=== PATIENT | female | born 1990 | race Caucasian/White ===

== ENCOUNTER 2018-06-17 18:40 | Observation (INO) ==
[2018-06-17] MEDS ORDERED: Acetaminophen 325 MG Tablet PO PRN (22:06)
[2018-06-17] MEDS ORDERED: Bisacodyl 10 MG Supp RECTAL PRN (22:06)
[2018-06-18] MEDS: Morphine Inj 4 MG/ML Vial IV.PUSH PRN ×5 (01:03→23:15)
[2018-06-18] MEDS: Sod Chloride 0.9% Inj 1,000 ML IV.CONT SCH ×3 (01:03→18:00)
[2018-06-18] MEDS: Temazepam 15 MG Capsule PO PRN ×2 (01:05→23:16)
[2018-06-18 07:51] LABS: Chloride 104 meq/L (98-107); Potassium 3.7 meq/L (3.5-5.1); Sodium 136 meq/L (136-145)
[2018-06-18 07:53] LABS: Baso % (Auto) 0.3 % (0.0-2.0); Eos % (Auto) 0.2 % (0.0-4.0); Hematocrit 39.3 % (35.0-46.0); Hemoglobin 13.8 gm/dL (11.6-15.3); Lymph # (Auto) 1.5 th/mm3 (1.0-4.8); Lymph % (Auto) 11.6 % (9.0-44.0); Mean Corpuscular Hemoglobin 31.9 pg (27.0-34.0); Mean Corpuscular Volume 91.2 fL (80.0-100.0); Mean Platelet Volume 9.1 fL (7.0-11.0); Mono # (Auto) 0.7 th/mm3 (0.0-0.9); Mono % (Auto) 5.7 % (0.0-8.0); Neut # (Auto) 10.8 th/mm3 (1.8-7.7); Neut % (Auto) 82.2 % (16.0-70.0); Platelet Count 326 th/mm3 (150-450); Red Blood Count 4.31 mil/mm3 (4.00-5.30); Red Cell Distribution Width 12.7 % (11.6-17.2)
[2018-06-18 07:54] LABS: Calcium 7.9 mg/dL (8.5-10.1)
[2018-06-18 07:55] LABS: Albumin 3.5 g/dL (3.4-5.0); Anion Gap 8 meq/L (5-15); Blood Urea Nitrogen 10 mg/dL (7-18); Carbon Dioxide 23.8 meq/L (21.0-32.0); Glucose,Random 94 mg/dL (74-106)
[2018-06-18 07:58] LABS: Alanine Aminotransferase 24 U/L (10-53); Aspartate Aminotransferase 11 U/L (15-37); Glomerular Filtration Rate Greater Than 89 mL/min (>89)
[2018-06-18 08:00] LABS: Total Protein 6.7 g/dL (6.4-8.2)
[2018-06-18 08:01] LABS: Alkaline Phosphatase 55 U/L (45-117)
--- NOTE | 2018-06-18 08:36 | P.HP ---
History of Present Illness Service: Hospitalist Primary Care Physician: UNKNOWN Chief Complaint: Abdominal pain History of Present Illness: Ms. Andrews is a pleasant 28-year-old female with no significant medical history who presents to the emergency department on 06/17/2010 due to right upper quadrant abdominal pain, nausea and vomiting. Her symptoms started in the morning on 06/17/2018. She initially reported to [place] ED. Gallbladder ultrasound shows multiple stones as well as gallbladder wall thickening. She was subsequently transferred to [place]. She had leukocytosis WBC 13.0. She denies any fever but reports chills. Denies any chest pain, shortness of breath, cough. Denies changes in bowel or bladder habits. Past medical history: No significant past medical history Past surgical history no significant past surgical history. Social history: Patient smokes about half a pack a day, denies drinking alcohol. She smokes meth. Denies using IV drugs. Family history: Father with heart disease. - Diagnosis (1) Acute cholecystitis [facility] - History History Provided By: Patient - Medical History Medical History: Medical History (Last Updated 06/17/18 @ 18:48 by Zamzam West RN) Anxiety - Surgical History Surgical History: Surgical History (Last Reviewed 06/18/18 @ 07:03 by Wendy Garcia MD) No history of previous surgery - Tobacco History Second Hand Smoke Exposure: Yes Tobacco Use In Past 30 Days: Yes Smoking Status: Heavy tobacco smoker Tobacco Type: Cigarettes - Alcohol History How Often Do You Have a Drink Containing Alcohol: Never - Substance Use History Substance History: Active Abuse - Substance Use Type Methamphetamine Status: Active Route Used: Inhalation Frequency: monthly Last Used: "few days ago" Reason for Use: Get High Medications and Allergies Active Medications: Active Medications Acetaminophen (Tylenol) 650 mg PO Q4H PRN PRN Reason: Temp > 100.4 Al Hydroxide/Mg Hydroxide (Milk Of Magnesia Liq) 30 ml PO Q12H PRN PRN Reason: Mild Constipation Bisacodyl (Dulcolax Supp) 10 mg RECTAL DAILY PRN PRN Reason: SEVERE CONSITIPATION Sodium Chloride (Ns Inj) 1,000 mls @ 100 mls/hr IV.CONT .Q10H [facility] Last Admin: 06/18/18 01:03 Dose: 100 mls/hr Morphine Sulfate (Morphine Inj) 4 mg IV.PUSH Q3H PRN PRN Reason: PAIN > 4 Last Admin: 06/18/18 06:34 Dose: 4 mg Ondansetron HCl (Zofran Inj) 4 mg IV.PUSH Q6H PRN PRN Reason: NAUSEA OR VOMITING Last Admin: 06/18/18 06:33 Dose: 4 mg Sennosides (Senokot) 17.2 mg PO Q12H PRN PRN Reason: Moderate Constipation Temazepam (Restoril) 15 mg PO HS PRN PRN Reason: INSOMNIA Last Admin: 06/18/18 01:05 Dose: 15 mg Allergies Allergy/AdvReac Type Severity Reaction Status Date / Time No Known Allergies Allergy Unverified 06/17/18 18:46 Home Medications Medication Instructions Recorded Confirmed Type No Known Home Medications 06/17/18 06/17/18 History Exam Vital signs: Vital Signs 06/18/18 00:15 06/18/18 04:00 Temperature 97.6 F 98.3 F Pulse Rate 43 L 54 L Respiratory Rate 20 20 Blood Pressure 120/79 114/70 Pulse Oximetry 99 100 Intake & Output 06/17/18 06/18/18 06/18/18 18:59 06:59 18:59 Intake Total 0 / 0 Output Total 300 / 300 Balance -300 / -300 Weight 61.1 kg Intake: Oral 0 / 0 Output: Urine 300 / 300 Other: # Voids 1 # Emeses 3 Weight On Admission 61.1 kg Narrative: GENERAL: This is a well-nourished, well-developed patient, in no apparent distress. SKIN: No rashes, ecchymoses or lesions. Warm and dry. HEAD: Atraumatic. Normocephalic. No temporal or scalp tenderness. EYES: Pupils equal round and reactive. No injection or drainage. ENT: Nose without bleeding, purulent drainage or septal hematoma. Airway patent. NECK: Trachea midline. No lymphadenopathy. Supple, nontender, no meningeal signs. CARDIOVASCULAR: Regular rhythm, bradycardic without murmurs, gallops, or rubs. No JVD. RESPIRATORY: Clear to auscultation. Breath sounds equal bilaterally. No wheezes , rales, or rhonchi. GASTROINTESTINAL: Abdomen soft, tenderness to right upper quadrant on palpation , nondistended. No guarding. MUSCULOSKELETAL: Extremities without clubbing, cyanosis, or edema. NEUROLOGICAL: Awake and alert. Cranial nerves II through XII intact. No focal neurological deficits. Normal speech. Results - Labs CBC & Chem 7: 06/18/18 07:20 06/18/18 07:20 Labs: Laboratory Results - last 24 hr 06/18/18 06/18/18 07:20 07:20 CBC w Diff Auto diff final WBC 13.0 H RBC 4.31 Hgb 13.8 Hct 39.3 MCV 91.2 MCH 31.9 MCHC 35.0 RDW 12.7 Plt Count 326 MPV 9.1 Neut % (Auto) 82.2 H Lymph % (Auto) 11.6 Hinds % (Auto) 5.7 Eos % (Auto) 0.2 Baso % (Auto) 0.3 Neut # (Auto) 10.8 H Lymph # (Auto) 1.5 Hinds # (Auto) 0.7 Eos # (Auto) 0.0 Baso # (Auto) 0.0 WBC Differential . Differential Comment . Sodium 136 Potassium 3.7 Chloride 104 Carbon Dioxide 23.8 Anion Gap 8 BUN 10 Creatinine 0.31 L Estimated GFR Greater than 89 Random Glucose 94 Calcium 7.9 L D Total Bilirubin 0.4 AST 11 L ALT 24 Alkaline Phosphatase 55 Total Protein 6.7 D Albumin 3.5 Beta HCG, Qual Less than 1.00 Caprini VTE Risk Assessment Caprini VTE Risk Assessment: No/Low Risk (score <= 1) Caprini Risk Assessment Model: Point Value = 1 Point Value = 2 Point Value = 3 Point Value = 5 Age 41-60 Minor surgery BMI > 25 kg/m2 Swollen legs Varicose veins or History of unexplained or recurrent spontaneous Oral contraceptives or hormone replacement Sepsis (< 1 month) Serious lung disease, including pneumonia (< 1 month) Abnormal pulmonary function Acute myocardial infarction Congestive heart failure (< 1 month) History of inflammatory bowel disease Medical patient at bed rest Age 61-74 Arthroscopic surgery Major open surgery (> 45 min) Laparoscopic surgery (> 45 min) Malignancy Confined to bed (> 72 hours) Immobilizing plaster cast Central venous access Age >= 75 History of VTE Family history of VTE Factor V Leiden Prothrombin [id number] Lupus anticoagulant Anticardiolipin antibodies Elevated serum homocysteine Heparin-induced thrombocytopenia Other congenital or acquired thrombophilia Stroke (< 1 month) Elective arthroplasty Hip, pelvis, or leg fracture Acute spinal cord injury (< 1 month) Prophylaxis Regimen: Total Risk Factor Score Risk Level Prophylaxis Regimen 0-1 Low Early ambulation 2 Moderate Order ONE of the following: *Sequential Compression Device (SCD) *Heparin 5000 units SQ BID 3-4 Higher Order ONE of the following medications: *Heparin 5000 units SQ TID *Enoxaparin/Lovenox 40 mg SQ daily (WT < 150 kg, CrCl > 30 mL/min) *Enoxaparin/Lovenox 30 mg SQ daily (WT < 150 kg, CrCl > 10-29 mL/min) *Enoxaparin/Lovenox 30 mg SQ BID (WT < 150 kg, CrCl > 30 mL/min) AND/OR *Sequential Compression Device (SCD) 5 or more Highest Order ONE of the following medications: *Heparin 5000 units SQ TID (Preferred with Epidurals) *Enoxaparin/Lovenox 40 mg SQ daily (WT < 150 kg, CrCl > 30 mL/min) *Enoxaparin/Lovenox 30 mg SQ daily (WT < 150 kg, CrCl > 10-29 mL/min) *Enoxaparin/Lovenox 30 mg SQ BID (WT < 150 kg, CrCl > 30 mL/min) AND *Sequential Compression Device (SCD) Assessment and Plan - Assessment (1) Acute cholecystitis Code(s): K81.0 - Acute cholecystitis Status: Acute - Plan Ms. Andrews is a pleasant 28-year-old female with no significant medical history who presents to the emergency department on 06/17/2018 due to right upper quadrant abdominal pain, nausea and vomiting as well as chills. She was found to have leukocytosis with WBC 13.0. Gallbladder ultrasound shows multiple stones as well as mild gallbladder wall thickening. Probable acute cholecystitis -GI and general surgery consulted. -HIDA scan is pending. -Discussed with neurosurgery. They will evaluate patient later today. -Will start patient on ceftriaxone 2 g daily. -Continue Pain management with Morphine. -NPO for now, ice chips okay. Tobacco abuse Meth abuse - Patient is counselled. Full code. Ambulation
--- NOTE | 2018-06-18 14:16 | NM ---
EXAM DATE: 06/18/2018 12:30 PM EDT AGE/SEX: 28 years / Female INDICATIONS: Abdominal pain and vomiting. CLINICAL DATA: This is the patient's initial encounter. Patient reports that signs and symptoms have been present for 1 day and indicates a pain score of 7/10. MEDICAL/SURGICAL HISTORY: Cholelith asis. None. COMPARISON: No prior exams available for comparison. DOSE: 4.4 mCi Tc-99m mebrofenin i.v. TECHNIQUE: Following the intravenous administration of radiotracer, dynamic sequential images were pe rformed with continuous acquisition. Time-activity curves were generated. FINDINGS: Hepatic Kinetics: There is prompt uptake of radiotracer in the liver. No focal defects are seen. T here is normal rate of washout from the hepatic parenchyma. Biliary Clearance: Activity is first seen in the extrahepatic biliary system at 10 minutes. There i s normal excretion into the small bowel. Gallbladder: The gallbladder was not identified throughout the examination. Biliary-Enteric Reflux: There was extensive biliary enteric reflux observed. CONCLUSION: 1. Nonvisualization of the gallbladder. In the appropriate clinical setting this would be concerning for cholecystitis. Follow-up, delayed imaging for more definitive assessment would be of benefit. 2. Biliary enteric reflux. Electronically signed by: Bj Webber MD 06/18/2018 2:15 PM EDT
--- NOTE | 2018-06-18 16:46 | P.CONGS ---
[facility] Consult Note Consult date: 06/18/18 Reason for consult: abdominal pain Requesting physician: Deanna Whitney Narrative: CONSULTATION NOTE FOR SURGICAL ATTENDING, DR. TONEY NAYLOR This is a 28-year-old female with no significant past medical history. She reported to the ED in [place] with right upper quadrant pain with associated nausea and vomiting that developed shortly after awakening on Monday. The patient states she was fine on Monday. An ultrasound of the abdomen was obtained which shows multiple stones and gallbladder wall thickening. A HIDA scan was also obtained which is consistent with cholecystitis. She does have a mildly elevated white blood cell count of 13,000. Her liver enzymes are essentially negative. She does report that in January she had a similar type episode but the pain resolved on its own without any medical treatment. A General Surgery consultation has been requested. Review of Systems Constitutional: Denies chills, Denies fever(s) Eyes: Denies blurry vision Ears, Nose, Mouth, and Throat: Denies abnormal hearing Cardiovascular: Denies chest pain, Denies chest pain at rest, Denies chest pain with activity Respiratory: Denies change in phlegm color, Denies chest congestion, Denies cough Gastrointestinal: Reports abdominal pain, Reports nausea, Reports vomiting Genitourinary: Denies pelvic pain Musculoskeletal: Denies body aches Skin/Breast: Denies non-healing lesions Neurologic: Denies headache(s) Psychiatric: Denies anxiety, Denies depression Endocrine: Denies cold intolerance, Denies heat intolerance Hematologic/Lymphatic: Denies easy bleeding Allergic/Immunologic: Denies GI upset with certain foods PMFSH - History History Provided By: Patient - Medical History Medical History: Medical History (Last Reviewed 06/19/18 @ 10:46 by Toney Naylor MD) Anxiety - Surgical History Surgical History: Surgical History (Last Reviewed 06/19/18 @ 10:46 by Toney Naylor MD) No history of previous surgery - Tobacco History Second Hand Smoke Exposure: Yes Tobacco Use In Past 30 Days: Yes Smoking Status: Heavy tobacco smoker Tobacco Type: Cigarettes - Alcohol History How Often Do You Have a Drink Containing Alcohol: Never - Substance Use History Substance History: No History of Abuse - Substance Use Type Methamphetamine Frequency: monthly Medications and Allergies Allergies Allergy/AdvReac Type Severity Reaction Status Date / Time No Known Allergies Allergy Unverified 06/17/18 18:46 Home Medications Medication Instructions Recorded Confirmed Type No Known Home Medications 06/17/18 06/17/18 History Active Medications: Active Medications Acetaminophen (Tylenol) 650 mg PO Q4H PRN PRN Reason: Temp > 100.4 Al Hydroxide/Mg Hydroxide (Milk Of Magnesia Liq) 30 ml PO Q12H PRN PRN Reason: Mild Constipation Bisacodyl (Dulcolax Supp) 10 mg RECTAL DAILY PRN PRN Reason: SEVERE CONSITIPATION Sodium Chloride (Ns Inj) 1,000 mls @ 100 mls/hr IV.CONT .Q10H [facility] Last Admin: 06/18/18 08:52 Dose: 100 mls/hr Ceftriaxone Sodium 2,000 mg/ (Sodium Chloride) 100 mls @ 200 mls/hr IV.SIG Q24H [facility] Last Infusion: 06/18/18 09:23 Dose: Infused Morphine Sulfate (Morphine Inj) 4 mg IV.PUSH Q3H PRN PRN Reason: PAIN > 4 Last Admin: 06/18/18 12:45 Dose: 4 mg Ondansetron HCl (Zofran Inj) 4 mg IV.PUSH Q6H PRN PRN Reason: NAUSEA OR VOMITING Last Admin: 06/18/18 06:33 Dose: 4 mg Sennosides (Senokot) 17.2 mg PO Q12H PRN PRN Reason: Moderate Constipation Temazepam (Restoril) 15 mg PO HS PRN PRN Reason: INSOMNIA Last Admin: 06/18/18 01:05 Dose: 15 mg Exam Vital signs: Vital Signs 06/18/18 00:15 06/18/18 04:00 06/18/18 08:00 Temperature 97.6 F 98.3 F 97.5 F L Pulse Rate 43 L 54 L 50 L Respiratory Rate 20 20 18 Blood Pressure 120/79 114/70 116/69 Pulse Oximetry 99 100 100 06/18/18 12:00 Temperature 96.3 F L Pulse Rate 83 Respiratory Rate 20 Blood Pressure 184/83 H Pulse Oximetry 97 Intake & Output 06/17/18 06/18/18 06/18/18 18:59 06:59 18:59 Intake Total 0 / 0 1100 / 1100 Output Total 300 / 300 Balance -300 / -300 1100 / 1100 Weight 61.1 kg Intake: IV 1100 / 1100 NS Inj 1,000 ML @ 100 mls/hr IV 1000 / 1000 .CONT .Q10H [facility] Rx#:[id number] Rocephin Inj 2,000 MG In NS Inj 100 / 100 100 ML @ 200 mls/hr IV.SIG Q24H [facility] Rx#:[id number] Oral 0 / 0 Output: Urine 300 / 300 Other: # Voids 1 # Emeses 3 Weight On Admission 61.1 kg Narrative: GENERAL: 28 year old female resting in bed in no acute distress. SKIN: Warm and dry. HEAD: Atraumatic. Normocephalic. EYES: Pupils equal and round. No scleral icterus. No injection or drainage. ENT: No nasal bleeding or discharge. Mucous membranes pink and moist. NECK: Trachea midline. CARDIOVASCULAR: Regular rate and rhythm. RESPIRATORY: No accessory muscle use. Clear to auscultation. Breath sounds equal bilaterally. GASTROINTESTINAL: Abdomen soft, nondistended. RUQ tenderness with palpation. No visible scars or hernias. MUSCULOSKELETAL: Extremities without clubbing, cyanosis, or edema. No obvious deformities. NEUROLOGICAL: Awake and alert. No obvious cranial nerve deficits. Motor grossly within normal limits. Five out of 5 muscle strength in the arms and legs. Normal speech. PSYCHIATRIC: Appropriate mood and affect; insight and judgment normal. Patient examined Agree with above Severe right upper quadrant pain positive Cruz sign Results - Labs 06/18/18 07:20 06/18/18 07:20 Abnormal lab results 06/18/18 06/18/18 Range/Units 07:20 07:20 WBC 13.0 H (4.0-11.0) th/mm3 Neut % (Auto) 82.2 H (16.0-70.0) % Neut # (Auto) 10.8 H (1.8-7.7) th/mm3 Creatinine 0.31 L (0.50-1.00) mg/dL Calcium 7.9 L D (8.5-10.1) mg/dL AST 11 L (15-37) U/L Diabetes panel 06/18/18 Range/Units 07:20 Sodium 136 (136-145) meq/L Potassium 3.7 (3.5-5.1) meq/L Chloride 104 (98-107) meq/L Carbon Dioxide 23.8 (21.0-32.0) meq/L BUN 10 (7-18) mg/dL Creatinine 0.31 L (0.50-1.00) mg/dL Calcium 7.9 L D (8.5-10.1) mg/dL AST 11 L (15-37) U/L ALT 24 (10-53) U/L Alkaline Phosphatase 55 (45-117) U/L Total Protein 6.7 D (6.4-8.2) g/dL Albumin 3.5 (3.4-5.0) g/dL Calcium panel 06/18/18 Range/Units 07:20 Calcium 7.9 L D (8.5-10.1) mg/dL Albumin 3.5 (3.4-5.0) g/dL Pituitary panel 06/18/18 Range/Units 07:20 Sodium 136 (136-145) meq/L Potassium 3.7 (3.5-5.1) meq/L Chloride 104 (98-107) meq/L Carbon Dioxide 23.8 (21.0-32.0) meq/L BUN 10 (7-18) mg/dL Creatinine 0.31 L (0.50-1.00) mg/dL Calcium 7.9 L D (8.5-10.1) mg/dL Adrenal panel 06/18/18 Range/Units 07:20 Sodium 136 (136-145) meq/L Potassium 3.7 (3.5-5.1) meq/L Chloride 104 (98-107) meq/L Carbon Dioxide 23.8 (21.0-32.0) meq/L BUN 10 (7-18) mg/dL Creatinine 0.31 L (0.50-1.00) mg/dL Calcium 7.9 L D (8.5-10.1) mg/dL Total Bilirubin 0.4 (0.2-1.0) mg/dL AST 11 L (15-37) U/L ALT 24 (10-53) U/L Alkaline Phosphatase 55 (45-117) U/L Total Protein 6.7 D (6.4-8.2) g/dL Albumin 3.5 (3.4-5.0) g/dL All other labs normal. - Imaging US - abdomen: report reviewed, image reviewed (HIDA scan reviewed) Additional studies: HIDA scan ITS Impressions Hepatobiliary Scan Nuclear Medicine 06/18/18 00:00 CONCLUSION: 1. Nonvisualization of the gallbladder. In the appropriate clinical setting this would be concerning for cholecystitis. Follow-up, delayed imaging for more definitive assessment would be of benefit. 2. Biliary enteric reflux. Assessment and Plan - Assessment (1) Acute cholecystitis Code(s): K81.0 - Acute cholecystitis Status: Acute Plan: 28 year old female with acute cholecystics -We will plan for laparoscopic cholecystectomy tomorrow -N.p.o. after midnight -Discussed procedure including risks and benefits -Obtain consents -Continue IVF and antibiotics -All questions answered -Thank you for this consult; we will continue to follow (2) Positive Cruz's Sign Code(s): R19.8 - Other specified symptoms and signs involving the digestive system and abdomen Status: Acute (3) Acute calculous cholecystitis Code(s): K80.00 - Calculus of gallbladder with acute cholecystitis without obstruction Status: Acute (4) Right upper quadrant pain Code(s): R10.11 - Right upper quadrant pain Status: Acute (5) Abnormal findings on imaging of biliary tract Code(s): R93.2 - Abnormal findings on diagnostic imaging of liver and biliary tract Status: Acute (6) Abnormal biliary HIDA scan Code(s): R94.8 - Abnormal results of function studies of other organs and systems Status: Acute - Plan Discussed Condition With: Dr. Dayday Andrews - Attending Attestation CONSULTATION NOTE FOR SURGICAL ATTENDING, DR. TONEY NAYLOR Patient has classic signs and symptomatology consistent with biliary colic Imaging of an ultrasound and HIDA scan confirmed clinical suspicion Discussed in detail with the patient about laparoscopic procedure I agree with above assessment and plan. The exam, history, and the medical decision-making described in the above note were completed with the assistance of the mid-level provider. I reviewed and agree with the findings presented. I attest that I had a [id number] encounter with the patient on the same day, and personally performed and documented my assessment and findings in the medical record. The following services were provided during this hospital visit: Chart data review, vital sign assessments/reviewing monitor data Review of consultations notes if present. Medication orders/review and/or management Ordering and/or reviewing lab tests Ordering and/or interpreting/reviewing x-rays and/or diagnostic studies Care of the patient and discussion of the patient with the care team Documentation time To help prompt me to consider important information that might be impacting today's encounter and assessment, Information from prior notes written by myself or my colleagues may have been "brought forward/copy and pasted" into today's note.
--- NOTE | 2018-06-18 21:15 | MB ---
cc: Wendy Garcia MD DATE: 06/18/2018 REFERRING PHYSICIAN: Deanna Whitney MD REASON FOR CONSULTATION: Abdominal pain, abnormal gallbladder. HISTORY OF PRESENT ILLNESS: Ms. Andrews is a 28-year-old lady with no major medical problems, came to the emergency room with complaints of right upper quadrant pain, nausea, and vomiting. She was evaluated in the emergency room when the ultrasound showed multiple gallstones and gallbladder wall thickening. She was transferred to [facility] for further evaluation and treatment. She denies any fever, chills, weight loss, melena, hematemesis, or hematochezia. Never had this type of problem in the past. Denies any GI workup in the past. PAST MEDICAL HISTORY: None. PAST SURGICAL HISTORY: None. SOCIAL HISTORY: Smokes half a pack of cigarettes daily. Denies alcohol use. She does smoke methamphetamine. Denies IV drugs. FAMILY HISTORY: Father had heart disease. ALLERGIES: NO KNOWN ALLERGIES. MEDICATIONS: 1. Tylenol. 2. Milk of magnesia. 3. Dulcolax suppositories. 4. Morphine p.r.n. 5. Zofran p.r.n. 6. Temazepam. ALLERGIES: NO KNOWN ALLERGIES. REVIEW OF SYSTEMS: GENERAL: She denies any fever, chills, weight loss or weight gain. ENT: No alteration of baseline hearing or visual acuity. PULMONARY: Denies any chest pain, shortness of breath. GASTROINTESTINAL: As above. GENITOURINARY: Denies dysuria or hematuria. HEMATOLOGICAL: No history of anemia or bleeding disorder. SKIN: No alteration of baseline skin lesion. NEUROLOGIC: No history of TIA or CVA kind of symptoms. PHYSICAL EXAMINATION: GENERAL: She is sitting comfortably in bed, in no acute distress. VITAL SIGNS: Her temperature is 98.3, pulse 54, respirations 20, blood pressure 114/70. HEENT: PERRLA. NECK: No JVD. No lymphadenopathy. CHEST: Clear to auscultation and palpation. CARDIOVASCULAR: S1, S2. No murmur. ABDOMEN: Soft, nontender except in the right upper quadrant. CENTRAL NERVOUS SYSTEM: Awake, alert, oriented x3. No focal sinus tenderness. EXTREMITIES: No pedal edema. LABORATORY DATA: White count is 13, hemoglobin normal. Her CMP essentially normal. The patient had an ultrasound of the abdomen, which showed gallstones and thickened gallbladder. HIDA scan was also done, which showed nonvisualization of the gallbladder. Delayed study recommended. IMPRESSION: Ms. Andrews is a 28-year-old lady admitted to the hospital with abdominal pain. Ultrasound and HIDA are suggestive of cholecystitis and gallstones. No indication of common bile duct stones. RECOMMENDATIONS: At this time, n.p.o., IV fluids, IV antibiotics. General surgery consultation. GI will sign off. Nothing to offer at this time. If any indication of common bile duct stones, then the patient may need ERCP at this time. No indication of that. Please call us as needed. If discharged, follow up with GI. Thank you again. GI will sign off. MD RENNY IrwinB/sv , 07:49 PM , 07:59 PM
[2018-06-19] MEDS: Sod Chloride 0.9% Inj 1,000 ML IV.CONT SCH (05:46)
[2018-06-19] MEDS: Morphine Inj 4 MG/ML Vial IV.PUSH PRN ×3 (05:46→13:45)
[2018-06-19] MEDS ORDERED: Famotidine PF Inj 20 MG/2 ML Vial ONE (10:04)
[2018-06-19] MEDS ORDERED: Chlorhexidine Gluconate 2% 1 Pack (2 Cloths) TOPICAL SCH (10:45)
[2018-06-19] MEDS ORDERED: Metoprolol Tartrate 25 MG Tablet PO SCH (10:45)
[2018-06-19] MEDS ORDERED: Sodium Chlor 0.9% Inj 500 ML IV.SIG SCH (11:00)
[2018-06-19] MEDS ORDERED: Bupivacaine/Epinephrine Inj 0.25% 50 ML Vial ONE (11:05)
[2018-06-19] MEDS ORDERED: Lidocaine PF 1% Inj 5 ML Syringe INFILTRATN ONE (11:17)
[2018-06-19] MEDS ORDERED: Neostigmine Inj 5 MG/5 ML Syringe IV.PUSH ONE (11:17)
--- NOTE | 2018-06-19 12:18 | P.OP ---
- Preoperative Diagnosis (1) Acute cholecystitis - Postoperative Diagnosis (1) Acute cholecystitis (2) S/P laparoscopic cholecystectomy Date of procedure: 06/19/18 Procedure: Laparoscopic cholecystectomy Anesthesia: GETA Surgeon: Toney Naylor MD Operation and Findings: PREOPERATIVE DIAGNOSIS: Cholelithiasis And/or Cholecystitis POSTOP DIAGNOSIS: Cholelithiasis cholecystitis PROCEDURE: Laparoscopic Cholecystectomy ANESTHESIA: General SURGEON: Toney Naylor M.D. ASST. PROCEDURE DETAILS The patient was brought to the operating room and after proper identification. The patient was intubated after the induction of appropriate anesthesia. The patient remained under general anesthesia for the duration of the case. The patient was prepped with an antiseptic over the abdomen in the usual fashion and then he was draped in the usual sterile fashion. Following the draping, the pneumoperitoneum was established via Veress needle after saline load test had been performed via a infra-umbilical incision. After direct visualization of the peritoneum, the trocar was introduced and insufflation was begun. After appropriate insufflation a scope was inserted and the abdomen was visually inspected to be benign in gross visualization. Next, another 5 mm port was placed just below the xiphoid. This was then followed by the placement of 5 mm ports in between the 2 previously placed ports. All port sites were anesthetized with a Marcaine solution. The gallbladder was easily identified. There were a few adhesions. No intraabdominal fluid. Upon retraction of the gallbladder, the infundibulum was identified. After some blunt dissection, the cystic duct was identified and then skeletonized using the small grasper. After appropriate identification of the cystic duct, it was clipped 3 times with 2 clips staying, 1 clip going. It was then transected with scissors. This was performed without any complication. Next, a cystic artery was identified and 2 surgical clips on the proximal end and 1 surgical clip on the distal end were applied and this was transected using the laparoscopic scissors. Following this, the gallbladder was easily retracted back and electrocautery was used to dissect the gallbladder fossa. There was a well-established plane. After application of the clips, no further bleeding from this site was appreciated. Hemostasis was attained on the gallbladder fossa using a small amount of electrocautery. Following the removal of the gallbladder from the gallbladder fossa, it was placed in an endobag and subsequently removed from the supraumbilical port site. We double checked for hemostasis at the cystic artery. Also checked the cystic duct stump which showed no bile leakage. All ports were then removed The infra-umbilical fascia was closed directly with 0 Vicryl and then the dermis was closed at all 3 incision sites with a 4-0 absorbable monofilament in a running subcuticular manner. The fascia was closed in a simple interrupted manner. Steri-Strips and dressings were placed over the incision sites. The patient was awakened from anesthesia. The patient was returned to post-anesthesia care unit in a stable condition. DETAIL SPECIFIC TO THIS PROCEDURE: Gallbladder was fairly inflamed Cystic duct and cystic artery were clearly identified with a posterior branch of the cystic artery as well Toney Naylor M.D.
[2018-06-19] MEDS ORDERED: fentaNYL Citrate Inj 100 MCG/2 ML Ampul ONE (12:33)
[2018-06-19] MEDS ORDERED: *Meperidine Inj 25 MG/ML Vial PERIprocedural Use ONLY ONE (12:49)
--- NOTE | 2018-06-19 16:18 | P.PN ---
Subjective Interval history: Follow up for acute cholecystitis. Patient is status post cholecystectomy. Surgery cleared for discharge. Physical Exam Vital signs: Vital Signs 06/18/18 20:00 06/19/18 00:00 06/19/18 08:00 Temperature 98.8 F 98.6 F 97.5 F L Pulse Rate 65 93 H 78 Respiratory Rate 16 16 16 Blood Pressure 106/63 104/59 L 100/58 L Pulse Oximetry 100 98 99 06/19/18 12:30 06/19/18 12:45 06/19/18 13:00 Temperature 97.8 F Pulse Rate 57 L 55 L 54 L Respiratory Rate 14 14 14 Blood Pressure 105/68 124/90 117/81 Pulse Oximetry 100 100 99 06/19/18 13:15 06/19/18 13:18 06/19/18 13:30 Temperature 97.9 F Pulse Rate 55 L 55 L 57 L Respiratory Rate 14 14 Blood Pressure 118/80 116/80 Pulse Oximetry 99 99 Intake & Output 06/18/18 06/19/18 06/19/18 18:59 06:59 18:59 Intake Total 2540 / 2540 1480 / 1480 1300 / 1300 Output Total 0 / 0 Balance 2540 / 2540 1480 / 1480 1300 / 1300 Weight 61.1 kg Intake: IV 2100 / 2100 1000 / 1000 NS Inj 1,000 ML @ 100 mls/hr IV 2000 / 2000 1000 / 1000 .CONT .Q10H [facility] Rx#:[id number] Rocephin Inj 2,000 MG In NS Inj 100 / 100 100 ML @ 200 mls/hr IV.SIG Q24H [facility]FR[facility]O Rx#:[id number] Oral 440 / 440 480 / 480 0 / 0 Anesthesia Amount 1000 / 1000 Other 300 / 300 Output: Stool 0 / 0 Other: # Voids 3 3 0 # Bowel Movements 0 Results - Labs CBC & Chem 7: 06/18/18 07:20 06/18/18 07:20 - Imaging Impressions Hepatobiliary Scan Nuclear Medicine 06/18/18 00:00 CONCLUSION: 1. Nonvisualization of the gallbladder. In the appropriate clinical setting this would be concerning for cholecystitis. Follow-up, delayed imaging for more definitive assessment would be of benefit. 2. Biliary enteric reflux. Assessment and Plan - Assessment (1) Acute cholecystitis Code(s): K81.0 - Acute cholecystitis Status: Acute - Plan Ms. Andrews is a pleasant 28-year-old female with no significant medical history who presents to the emergency department on 06/17/2018 due to right upper quadrant abdominal pain, nausea and vomiting as well as chills. She was found to have leukocytosis with WBC 13.0. Gallbladder ultrasound shows multiple stones as well as mild gallbladder wall thickening. Probable acute cholecystitis -GI and general surgery consulted. -HIDA scan is pending. -Discussed with neurosurgery. They will evaluate patient later today. -Will start patient on ceftriaxone 2 g daily. -Continue Pain management with Morphine. -NPO for now, ice chips okay. Tobacco abuse Meth abuse - Patient is counselled. Full code. Ambulation Searched [employer] database. No matching records found for controlled substance prescriptions. General surgery recommended [place] 5/325 Q6hrs for post surgery pain. Total tablets written for : 25. Discharge patient to home Condition on discharge: Improved Regular Diet as tolerated Ad Faina activity Rx written: [place] 5/325 every 6 hours as needed for pain 5-10 #25 Follow-up with primary care physician
== END 2018-06-19 16:20 | disposition home or self-care (01) ==
LOC: PHEDDLT 18:40 → INTOOBSV 06-18 00:05 → PH3 06-18 00:05
PROVIDERS: ADMIT Hospitalist; ATTEND Hospitalist